=== PATIENT | female | born 1970 | race Caucasian/White ===

== ENCOUNTER → 2020-11-02 | Outpatient (CLI) | payer BC ==
--- NOTE | 2020-11-02 08:42 | XR ---
Limited left knee HISTORY: Pain, no trauma 2 views the left knee, no comparisons There is joint space loss in the medial compartment with marginal spurring and subchondral sclerosis. Alignment is maintained. No fracture or dislocation. Serpiginous soft tissue densities within the so ft tissues are compatible with underlying varicosities. No sizable joint effusion. Spurring also pres ent at the patellofemoral joint. There may be soft tissue swelling. IMPRESSION: Osteoarthritis. Additional findings above.
== END | disposition home or self-care (01) ==
LOC: RADXRMAIN 07:15
PROVIDERS: ATTEND Physician Assistant Medical
DX: M17.12 Unilateral primary osteoarthritis, left knee (principal); M76.892 Other specified enthesopathies of left lower limb, excluding foot

== ENCOUNTER → 2021-05-07 | Outpatient (CLI) | payer BC ==
--- NOTE | 2021-05-10 11:03 | MM ---
Reason for exam: screening (asymptomatic). Last mammogram was performed 12 years and 9 months ago. History: Family history of breast cancer in mother at age 50. Taking hormonal contraceptives beginning at age 44. Physical Findings: A clinical breast exam by your physician is recommended on an annual basis and results should be correlated with mammographic findings. MG Screening Mammo w CAD Bilateral CC and MLO view(s) were taken. Prior study comparison: July 22, 2008, bilateral digital screening mammogram. There are scattered fibroglandular densities. This finding is changed when compared with previous exams. ASSESSMENT: Incomplete: need additional imaging evaluation, BI-RAD 0 RECOMMENDATION: Special view mammogram of both breasts. If lesion persists on supplemental views, image directed ultrasound is recommended. [facility] will attempt to contact patient to return for supplemental views and ultrasound if indicated.
== END | disposition home or self-care (01) ==
LOC: RADMAMWWP 07:38
PROVIDERS: ATTEND Family Medicine
DX: Z12.31 Encounter for screening mammogram for malignant neoplasm of breast (principal); Z80.3 Family history of malignant neoplasm of breast
CPT/HCPCS: 77067

== ENCOUNTER → 2021-05-12 | Outpatient (CLI) | payer BC ==
--- NOTE | 2021-05-13 14:53 | MM ---
Reason for exam: additional evaluation requested from abnormal screening. Last mammogram was performed less than 1 month ago. History: Family history of breast cancer in mother at age 50. Took hormonal contraceptives for 8 years beginning at age 44. Physical Findings: Nurse did not find any significant physical abnormalities on exam. MG 3D Work Up W/Cad ARJUN Bilateral spot compression CC and LM view(s) were taken. Prior study comparison: May 07, 2021, bilateral MG screening mammo w CAD. July 22, 2008, bilateral digital screening mammogram. The breast tissue is heterogeneously dense. This may lower the sensitivity of mammography. Right 1.5cm oval focal asymmetry persists medially. Again, not well seen on lateral but possibly 2 o'clock. Left nodularity becomes less defined. Some area of 1cm and smaller low density nodularity is noted, probable cysts. These results were verbally communicated with the patient and result sheet given to the patient on 05/12/21. ASSESSMENT: Incomplete: need additional imaging evaluation, BI-RAD 0 RECOMMENDATION: Ultrasound of both breasts. (right medial, left lateral)
--- NOTE | 2021-05-13 14:57 | USB ---
Reason for exam: additional evaluation requested from abnormal screening. History: Family history of breast cancer in mother at age 50. Took hormonal contraceptives for 8 years beginning at age 44. US Breast Workup Limited ARJUN Right limited breast ultrasound including focal area of concern, retroareolar and axilla demonstrates a 1.1 x 0.8 x 0.5cm oval, lobulated, mixed cluster at 1 o'clock, likely mammographic correlate, biopsy with clip placement, a 2.7 x 2.3 x 0.8cm oval, solid, circumscribed lipoma at 2 o'clock and a 0.4 x 0.4 x 0.2cm oval, cystic lesion at 3 o'clock. Left limited breast ultrasound including focal area of concern, retroareolar and axilla demonstrates a 0.5 x 0.4 x 0.2cm oval, cystic lesion at 2 o'clock, a 0.6 x 0.5 x 0.2cm oval, cystic lesion at 3 o'clock, a 0.4 x 0.4 x 0.3cm oval, cystic lesion at 4 o'clock, and ductal ectasia at 4 o'clock posterior nipple. Right breast scanned 12-6 o'clock. Left breast scanned 12-6 o'clock. These results were verbally communicated with the patient and result sheet given to the patient on 05/12/21. ASSESSMENT: Suspicious, BI-RAD 4 RECOMMENDATION: Ultrasound core biopsy of the right breast. (1 o'clock) Called Dr. Tesfaye's office with mammographic findings and has scheduled an appointment for the patient for 07/09/21 at 10:[address] Pascual. Biopsy scheduled for 07/09/21 at 1:00. PRELIMINARY REPORT CALLED AND FAXED TO DR. PASCUAL ON 05/13/21.
== END | disposition home or self-care (01) ==
LOC: RADMAMWWP 07:10
PROVIDERS: ATTEND Family Medicine
DX: N60.01 Solitary cyst of right breast (principal); N60.02 Solitary cyst of left breast; N60.42 Mammary duct ectasia of left breast
CPT/HCPCS: 77062; 77066

== ENCOUNTER → 2021-07-09 | Day surgery (SDC) | payer BC ==
[2021-07-09 09:45] VITALS: RESP 16
[2021-07-09 11:12] VITALS: BP 110/71; PULSE 71; TEMP 98
--- NOTE | 2021-07-09 15:32 | USB ---
EXAMINATION TYPE: US biopsy breast VAD RT DATE OF EXAM: 07/09/2021 CLINICAL HISTORY: R92.8, Abnormal mammogram. TECHNIQUE: Ultrasound guided vaccuum assisted core biopsy of right breast. COMPARISON: 05/12/2021 FINDINGS: The ultrasound guided core biopsy procedure was explained to the patient. The risks, benefits, alternatives were discussed. An informed consent was then obtained. Timeout was performed. The patient was placed in supine positioning for imaging and for the procedure. The overlying skin was prepped with betadine and sterilely draped in usual sterile fashion. Lidocaine 1% was used as anesthetic into the skin and deeper breast tissue up to area of concern in the breast. A small skin mukul was made with surgical scalpel. Under ultrasound guidance, a 12-gauge vacuum assisted biopsy device was used to obtain 4 core samples. A biopsy clip was left in lesion. Ribbon clip was placed Good hemostasis was obtained with direct pressure. Discharge instructions were discussed with the patient. The patient will follow up with the referring physician for results. Postprocedure mammogram: The patient was transferred to mammography for physician ordered post procedure mammogram for clip placement verification. The clip is in the expected region of the biopsy. This area also appears to correspond to the mammographic finding 05/12/2021. The patient tolerated the procedure well without any immediate complication. The patient was discharged to home in stable condition. IMPRESSION: 1. Successful ultrasound guided biopsy right breast. Recommendations: 1. Recommendations are pending pathology results. Pathology Results: Benign RIGHT BREAST, ONE O'CLOCK, CORE BIOPSY: Fibrocystic changes with papillary apocrine metaplasia, focal columnar cell change and focally favored microcalcification. Negative for in situ or invasive carcinoma. Recommendation Follow up ultrasound of the right breast in 6 months. KRANTHI
--- NOTE | 2021-07-09 15:33 | MM ---
EXAMINATION TYPE: US biopsy breast VAD RT DATE OF EXAM: 07/09/2021 CLINICAL HISTORY: R92.8, Abnormal mammogram. TECHNIQUE: Ultrasound guided vaccuum assisted core biopsy of right breast. COMPARISON: 05/12/2021 FINDINGS: The ultrasound guided core biopsy procedure was explained to the patient. The risks, benef its, alternatives were discussed. An informed consent was then obtained. Timeout was performed. The patient was placed in supine positioning for imaging and for the procedure. The overlying skin w as prepped with betadine and sterilely draped in usual sterile fashion. Lidocaine 1% was used as ane sthetic into the skin and deeper breast tissue up to area of concern in the breast. A small skin basia k was made with surgical scalpel. Under ultrasound guidance, a 12-gauge vacuum assisted biopsy device was used to obtain 4 core samples . A biopsy clip was left in lesion. Ribbon clip was placed Good hemostasis was obtained with direct pressure. Discharge instructions were discussed with the lynne seymour. The patient will follow up with the referring physician for results. Postprocedure mammogram: The patient was transferred to mammography for physician ordered post proced ure mammogram for clip placement verification. The clip is in the expected region of the biopsy. Thi s area also appears to correspond to the mammographic finding 05/12/2021. The patient tolerated the procedure well without any immediate complication. The patient was dischar ged to home in stable condition. IMPRESSION: 1. Successful ultrasound guided biopsy right breast. Recommendations: 1. Recommendations are pending pathology results.
== END ==
LOC: RADUSWWP 08:19
PROVIDERS: ATTEND Surgery
DX: R92.8 Other abnormal and inconclusive findings on diagnostic imaging of breast (principal); N60.11 Diffuse cystic mastopathy of right breast; N60.81 Other benign mammary dysplasias of right breast
CPT/HCPCS: 88305; 77065; 19083; A4648; J2001

== ENCOUNTER → 2021-07-09 | Outpatient (CLI) | payer BC ==
[2021-07-09 08:54] VITALS: BP 116/79; PULSE 78; RESP 18; TEMP 98.6
--- NOTE | 2021-07-09 09:25 | P.GSHP ---
History of Present Illness H&P Date: 07/09/21 Chief Complaint: Abnormal right breast mammogram and ultrasound Trinh is a 50-year-old white female who underwent a bilateral mammogram on [id number]. She was noted to have right breast 1.5 cm oval focal asymmetry medially and left breast nodularity. Additional workup of ultrasound of both breasts was performed on the same day. In the right breast she was noted to have a 1.1 x 0.8 cm lobulated mix cluster which felt to correlate with mammographic change. Additionally a 2.7 x 2.3 cm probable lipoma was noted at 2:00 and a 0.4 x 0.2 cm cystic lesion at 3:00. In the left breast only cystic changes were identified. The patient did not feel anything in her breast, and still does not. The patient did not have any trauma or infection in the breast. She is not complaining of any nipple discharge or skin changes. She is not complaining of any pain in her breasts. She has never had a breast biopsy or surgery on her breasts. Caffeine: 3 energy drinks/day nicotine: 1/PPD (30 years) chocolate: none BCP: 30 years ( oral and implants) Family History: mother: bilateral mastectomy, bilateral cancer first diagnosis at 63 father: multiple myloma Hormonal history: Menarche: 13 age at 24, breast fed: yes menopause: implant placed for control over 8 years ago no period since BCP: oral BCP 10 years, Mederna uterine implant 10 years; than implant in arm Nexplanon hormones: none Surgical history: left knee repair torn meniscus eye surgery (two cataract, tear ducts, glaucoma, implants that release steriods) Medical History: eye uveitis HTN Social History: nicotine: 1/PPD alcohol: none drugs: Marijuana edibles to sleep at night - Constitutional Constitutional: Denies chills, Denies fever - EENT Eyes: denies blurred vision, denies pain Ears: deny: decreased hearing, tinnitus Ears, nose, mouth and throat: Denies headache, Denies sore throat - Breasts Breasts: bilateral: as per HPI - Cardiovascular Cardiovascular: Denies chest pain, Denies shortness of breath - Respiratory Comment: smokers cough - Gastrointestinal Gastrointestinal: Denies abdominal pain, Denies diarrhea, Denies nausea, Denies vomiting - Genitourinary (Female) Genitourinary: Denies dysuria, Denies hematuria - Menstruation Menstruation: Reports as per HPI - Musculoskeletal Musculoskeletal: Denies myalgias - Integumentary Integumentary: Denies pruritus, Denies rash - Neurological Neurological: Denies numbness, Denies weakness - Psychiatric Psychiatric: Denies anxiety, Denies depression - Endocrine Comment: weight loss rani irene Endocrine: Reports weight change, Denies fatigue - Hematologic/Lymphatic Comment: none - Allergic/Immunologic Allergic/Immunologic: Reports as per HPI Past Medical History History of Any Multi-Drug Resistant Organisms: None Reported Smoking Status: Current every day smoker Medications and Allergies Home Medications Medication Instructions Recorded Confirmed Type Escitalopram Oxalate [Lexapro] 60 mg PO DAILY 07/01/21 07/09/21 History Liraglutide [Saxenda] 0.6 mg SQ DAILY 07/01/21 07/09/21 History hydroCHLOROthiazide 40 mg PO DAILY 07/01/21 07/09/21 History Allergies Allergy/AdvReac Type Severity Reaction Status Date / Time No Known Allergies Allergy Verified 07/09/21 08:49 Surgical - Exam Vital Signs Temp Pulse Resp BP Pulse Ox 98.6 F 78 18 116/79 98 07/09/21 08:49 07/09/21 08:49 07/09/21 08:49 07/09/21 08:49 07/09/21 08:49 BMI 42.3 - General well developed, well nourished, no distress - Eyes normal ocular movement - ENT no hearing loss - Neck trachea midline - Respiratory normal respiratory effort - Cardiovascular Rhythm: regular Heart Sounds: normal: S1, S2 - Abdomen Abdomen: soft - Integumentary normal turgor - Neurologic no disoriented, no combative - Musculoskeletal normal gait, normal posture - Psychiatric oriented to time, oriented to person, oriented to place, speech is normal, memory intact Breast Exam: BRA: 46DD inspection: Grade 3 ptosis Palpation: Right breast: Multi-positional exam fibrocystic changes, increased nodularity upper inner quadrant no discrete dominant masses or nodules of concern otherwise Right axilla: No adenopathy of concern Left breast: Multi-positional exam fibrocystic changes no dominant masses or nodules of concern Left axilla: No adenopathy of concern Results Mammogram and ultrasound reviewed Assessment and Plan Assessment: Impression: Fibrocystic breast changes questionable increased nodularity 1:00 right breast Abnormal right breast mammogram and ultrasound Hypertension Uveitis familiy history of breast cancer (BRCA test negative) Plan: Ultrasound-guided core biopsy right breast Patient to follow up after ultrasound core biopsy CC: Radha Cardona
== END ==
LOC: WWCWWP 08:17
PROVIDERS: ATTEND Surgery
DX: R92.8 Other abnormal and inconclusive findings on diagnostic imaging of breast (principal); N60.11 Diffuse cystic mastopathy of right breast; N60.12 Diffuse cystic mastopathy of left breast; I10 Essential (primary) hypertension; H20.9 Unspecified iridocyclitis; Z80.3 Family history of malignant neoplasm of breast; F17.210 Nicotine dependence, cigarettes, uncomplicated

== ENCOUNTER → 2023-01-03 | Outpatient (CLI) | payer BC ==
--- NOTE | 2023-01-03 08:39 | MM ---
Reason for Exam: Follow-up at short interval from prior study. Last mammogram was performed 1 year(s) and 8 month(s) ago. Patient History: Menarche at age 13. First Full-Term at age 25. Hormonal Contraceptives, starting at age 44 for 8 years. 07/09/2021, Benign Core Biopsy on the right side. Mother had breast cancer, age 50. Risk Values: Priti 5 year model risk: 2.3%. NCI Lifetime model risk: 17.2%. Tissue Density: There are scattered fibroglandular densities. Findings: Analyzed By CAD. No new suspicious masses, calcifications or distortions. Right breast biopsy clip. Overall Assessment: Benign, BI-RAD 2 Management: Screening Mammogram of both breasts in 1 year. Results were given to the patient verbally at the time of exam. Patient should continue monthly self-breast exams. A clinical breast exam by your physician is recommended on an annual basis. This exam should not preclude additional follow-up of suspicious palpable abnormalities. Note on Priti scores and lifetime risk: 1. A Priti score greater than 3% is considered moderate risk. If this is the case, consider specialist referral to assess eligibility for a risk reducing agent. 2. If overall lifetime risk for the development of breast cancer is 20% or higher, the patient may qualify for future screening with alternating mammogram and breast MRI. Electronically signed and approved by: Alan Yap DO
== END | disposition home or self-care (01) ==
LOC: RADMAMWWP 08:08
PROVIDERS: ATTEND Family Medicine
DX: R92.8 Other abnormal and inconclusive findings on diagnostic imaging of breast (principal); Z80.3 Family history of malignant neoplasm of breast
CPT/HCPCS: 77062; 77066

== ENCOUNTER 2023-09-03 06:20 | Emergency (ER) | payer BC ==
[2023-09-03] MEDS: SODIUM CHLORIDE 0.9% 1,000 ML IV ONE (06:38)
[2023-09-03] MEDS: SODIUM CHLORIDE 0.9% 500 ML 500 ML IV ONE (06:39)
[2023-09-03] MEDS: droPERidol 5 MG/2 ML VIAL IVP ONE (06:40)
--- NOTE | 2023-09-03 06:45 | ED ---
Headache HPI - General Chief Complaint: Headache Stated Complaint: Headache Time Seen by Provider: 09/03/23 06:25 Source: patient, EMS, RN notes reviewed Mode of arrival: EMS Limitations: no limitations - History of Present Illness Initial Comments: 52-year-old female presents emergency department chief complaint of headache, nausea vomiting. Patient states that she initially had a headache with associated nausea, vomiting on . She states that she was very fatigued Monday but yesterday she felt somewhat improved until overnight she developed symptoms again. She states it is a frontal headache and bilateral she denies any trauma denies any blood thinners states that her legs just feel heavy but denies any unilateral or associated weakness. She denies chest pain shortness of breath no reports of fever. Patient states that she has not been able to take her medications which include Zoloft, Vaylar, and Suboxone. - Related Data Home Medications Medication Instructions Recorded Confirmed Escitalopram Oxalate [Lexapro] 60 mg PO DAILY 07/01/21 07/09/21 Liraglutide [Saxenda] 0.6 mg SQ DAILY 07/01/21 07/09/21 hydroCHLOROthiazide 40 mg PO DAILY 07/01/21 07/09/21 Previous Rx's Medication Instructions Recorded Ondansetron Odt [Zofran Odt] 4 mg PO Q8HR PRN #10 tab 09/03/23 Allergies Allergy/AdvReac Type Severity Reaction Status Date / Time No Known Allergies Allergy Verified 07/09/21 09:37 Review of Systems ROS Statement: Those systems with pertinent positive or pertinent negative responses have been documented in the HPI. ROS Other: All systems not noted in ROS Statement are negative. Past Medical History Past Medical History: Hypertension History of Any Multi-Drug Resistant Organisms: None Reported Past Surgical History: Section Additional Past Surgical History / Comment(s): multiple eye surgery. Uveitis Past Anesthesia/Blood Transfusion Reactions: No Reported Reaction Past Psychological History: Anxiety Smoking Status: Current every day smoker Past Alcohol Use History: None Reported Past Drug Use History: None Reported General Exam Limitations: no limitations General appearance: alert, in no apparent distress Head exam: Present: atraumatic, normocephalic, normal inspection Eye exam: Present: normal appearance, PERRL, EOMI. Absent: scleral icterus, conjunctival injection, periorbital swelling ENT exam: Present: normal exam, normal oropharynx, mucous membranes moist Neck exam: Present: normal inspection, full ROM. Absent: tenderness, meningismus, lymphadenopathy Respiratory exam: Present: normal lung sounds bilaterally. Absent: respiratory distress, wheezes, rales, rhonchi, stridor Cardiovascular Exam: Present: regular rate, normal rhythm, normal heart sounds. Absent: systolic murmur, diastolic murmur, rubs, gallop, clicks Neurological exam: Present: alert, oriented X3, CN II-XII intact, reflexes normal. Absent: motor sensory deficit Skin exam: Present: warm, dry, intact, normal color. Absent: rash Course Vital Signs 09/03/23 09/03/23 09/03/23 06:22 08:00 08:45 Temperature 98.6 F 97.9 F Pulse Rate 63 64 67 Respiratory 14 16 18 Rate Blood Pressure 180/99 159/89 111/85 O2 Sat by Pulse 98 98 98 Oximetry Medical Decision Making - Medical Decision Making Was pt. sent in by a medical professional or institution (, PA, [employer], urgent care, hospital, or long term...) When possible be specific @ -No Did you speak to anyone other than the patient for history (EMS, parent, family, police, friend...)? What history was obtained from this source @ -No Did you review nursing and triage notes (agree or disagree)? Why? @ -I reviewed and agree with nursing and triage notes Were old charts reviewed (outside hosp., previous admission, EMS record, old EKG, old radiological studies, urgent care reports/EKG's, long term records)? Report findings @ -No old charts were reviewed Differential Diagnosis (chest pain, altered mental status, abdominal pain women, abdominal pain men, vaginal bleeding, weakness, fever, dyspnea, syncope, headache, dizziness, GI bleed, back pain, seizure, CVA, palpatations, mental health, musculoskeletal)? @ -[Differential Headache: Migraine, tension, cluster, carbon monoxide, central venous thrombosis, pension karma temporal arteritis, acute closure glaucoma, intercranial hemorrhage, mastoiditis, sinusitis, head injury, this is not meant to be an all-inclusive list. EKG interpreted by me (3pts min.). @ -None X-rays interpreted by me (1pt min.). @ -[None done CT interpreted by me (1pt min.). @ -CT brain showed no acute intracranial hemorrhage or mass effect U/S interpreted by me (1pt. min.). @ -None done What testing was considered but not performed or refused? (CT, X-rays, U/S, labs)? Why? @ -None What meds were considered but not given or refused? Why? @ -None Did you discuss the management of the patient with other professionals (professionals i.e. DrAllyssa, PA, [employer], lab, RT, psych nurse, vp digital marketing social media and crm, electric solderer, teacher, emergency communications officer, case consultant)? Give summary @ -No Was smoking cessation discussed for >3mins.? @ -No Was critical care preformed (if so, how long)? @ -No Were there social determinants of health that impacted care today? How? (Homelessness, low income, unemployed, alcoholism, drug addiction, transportation, low edu. Level, literacy, decrease access to med. care, senior care, rehab)? @ -No Was there de-escalation of care discussed even if they declined (Discuss DNR or withdrawal of care, Hospice)? DNR status @ -No What co-morbidities impacted this encounter? (DM, HTN, Smoking, COPD, CAD, Cancer, CVA, ARF, Chemo, Hep., AIDS, mental health diagnosis, sleep apnea, morbid obesity)? @ -None Was patient admitted / discharged? Hospital course, mention meds given and route, prescriptions, significant lab abnormalities, going to OR and other pertinent info. @ -Discharged did have laboratory studies unremarkable, CT was unremarkable patient feels improved after migraine cocktail. Patient discharged in stable condition this may be related to viral illness. Undiagnosed new problem with uncertain prognosis? @ -No Drug Therapy requiring intensive monitoring for toxicity (Heparin, Nitro, Insulin, Cardizem)? @ -No Were any procedures done? @ -No Diagnosis/symptom? @ -Headache, viral illness] Acute, or Chronic, or Acute on Chronic? @ -Acute Uncomplicated (without systemic symptoms) or Complicated (systemic symptoms)? @ -Uncomplicated Side effects of treatment? @ -No Exacerbation, Progression, or Severe Exacerbation? @ -No Poses a threat to life or bodily function? How? (Chest pain, [place], [place], pneumonia, PE, COPD, DKA, ARF, appy, cholecystitis, CVA, Diverticulitis, Homicidal, Suicidal, threat to staff... and all critical care pts) @ -No - Lab Data Result diagrams: 09/03/23 06:35 09/03/23 06:35 Lab Results 09/03/23 09/03/23 09/03/23 Range/Units 06:35 06:35 06:35 WBC 11.2 H (3.8-10.6) k/uL RBC 4.74 (3.80-5.40) m/uL Hgb 14.7 (11.4-16.0) gm/dL Hct 43.2 (34.0-46.0) % MCV 91.0 (80.0-100.0) fL MCH 31.1 (25.0-35.0) pg MCHC 34.2 (31.0-37.0) g/dL RDW 13.3 (11.5-15.5) % Plt Count 343 (150-450) k/uL MPV 7.4 Neutrophils % 59 % Lymphocytes % 30 % Monocytes % 6 % Eosinophils % 3 % Basophils % 1 % Neutrophils # 6.6 (1.3-7.7) k/uL Lymphocytes # 3.3 (1.0-4.8) k/uL Monocytes # 0.6 (0-1.0) k/uL Eosinophils # 0.3 (0-0.7) k/uL Basophils # 0.1 (0-0.2) k/uL Sodium 139 (137-145) mmol/L Potassium 3.8 (3.5-5.1) mmol/L Chloride 108 H (98-107) mmol/L Carbon Dioxide 22 (22-30) mmol/L Anion Gap 9 mmol/L BUN 15 (7-17) mg/dL Creatinine 0.66 (0.52-1.04) mg/dL Est GFR (CKD-EPI)AfAm >90 (>60 ml/min/1.73 sqM) Est GFR (CKD-EPI)NonAf >90 (>60 ml/min/1.73 sqM) Glucose 100 H (74-99) mg/dL Calcium 9.4 (8.4-10.2) mg/dL Total Bilirubin 1.0 (0.2-1.3) mg/dL AST 43 H (14-36) U/L ALT 24 (4-34) U/L Alkaline Phosphatase 45 (38-126) U/L Total Protein 7.1 (6.3-8.2) g/dL Albumin 4.3 (3.5-5.0) g/dL Influenza Type A (PCR) Not Detected (Not Detectd) Influenza Type B (PCR) Not Detected (Not Detectd) RSV (PCR) Not Detected (Not Detectd) SARS-CoV-2 (PCR) Not Detected (Not Detectd) Disposition Clinical Impression: Viral illness, Headache Disposition: HOME SELF-CARE Condition: Stable Instructions (If sedation given, give patient instructions): Acute Headache (ED) Additional Instructions: Please return to the Emergency Department if symptoms worsen or any other concerns. Prescriptions: Ondansetron Odt [Zofran Odt] 4 mg PO Q8HR PRN #10 tab PRN Reason: Nausea Is patient prescribed a controlled substance at d/c from ED?: No Referrals: Fartun Miller DO [REFERRING] - 1-2 days Time of Disposition: 08:25
[2023-09-03 07:09] LABS: Basophils # (A) 0.1 k/uL (0-0.2); Basophils % (A) 1 %; Eosinophils # (A) 0.3 k/uL (0-0.7); Eosinophils % (A) 3 %; HCT 43.2 % (34.0-46.0); HGB 14.7 gm/dL (11.4-16.0); Lymphocytes # (A) 3.3 k/uL (1.0-4.8); Lymphocytes % (A) 30 %; MCH 31.1 pg (25.0-35.0); MCHC 34.2 g/dL (31.0-37.0); Mean Platelet Volume 7.4; Monocytes # (A) 0.6 k/uL (0-1.0); Monocytes % (A) 6 %; Neutrophils # (A) 6.6 k/uL (1.3-7.7); Neutrophils % (A) 59 %; Platelet Count 343 k/uL (150-450); RBC 4.74 m/uL (3.80-5.40); RDW 13.3 % (11.5-15.5); WBC 11.2 k/uL (3.8-10.6)
[2023-09-03 07:25] LABS: ALT 24 U/L (4-34); African American GFR (CKD) >90 (>60 ml/min/1.73 sqM); Anion Gap 9 mmol/L; Blood Urea Nitrogen 15 mg/dL (7-17); Calcium 9.4 mg/dL (8.4-10.2); Carbon Dioxide 22 mmol/L (22-30); Chloride 108 mmol/L (98-107); Glucose 100 mg/dL (74-99); Non-African American GFR(CKD) >90 (>60 ml/min/1.73 sqM); Sodium 139 mmol/L (137-145)
[2023-09-03 07:26] LABS: AST 43 U/L (14-36); Albumin 4.3 g/dL (3.5-5.0); Alkaline Phosphatase 45 U/L (38-126); Potassium 3.8 mmol/L (3.5-5.1)
[2023-09-03 07:27] LABS: Total Protein 7.1 g/dL (6.3-8.2)
--- NOTE | 2023-09-03 07:33 | CT ---
EXAMINATION TYPE: CT brain wo con DATE OF EXAM: 09/03/2023 COMPARISON: 01/30/2012 HISTORY: 52-year-old female Severe headache, frontal region, denies HTN TECHNIQUE: Examination was done in axial plane without intravenous contrast. Coronal and sagittal r econstructions performed. CT DLP: 1197.4 mGycm Automated exposure control for dose reduction was used. FINDINGS: There is no evidence of acute intracranial hemorrhage, acute ischemic changes, mass, mass-effect, or extra-axial fluid collection. There is no effacement of cerebral sulci or basal subarachnoid cister ns. There is no hydrocephalus. There is no midline shift. Mosher-white matter distinction is preserv ed. Leftward nasal septal deviation. Paranasal sinuses and mastoid air cells well pneumatized. Orbits and globes are intact. IMPRESSION: No acute intracranial abnormality seen.
[2023-09-03] MEDS: KETOROLAC 15 MG/ML 1 ML VIAL IVP STA (08:06)
[2023-09-03] MEDS: ORPHENADRINE 30 MG/ML 2 ML VIAL IVP STA (08:06)
[2023-09-03 09:09] VITALS: BP 111/85; PULSE 67; RESP 18; TEMP 97.9
== END 2023-09-03 08:46 | disposition home or self-care (01) ==
LOC: EC 06:20
DX: B34.9 Viral infection, unspecified (principal); R51.9 Headache, unspecified; I10 Essential (primary) hypertension; F41.9 Anxiety disorder, unspecified; F17.200 Nicotine dependence, unspecified, uncomplicated; Z79.899 Other long term (current) drug therapy; Z20.822 Contact with and (suspected) exposure to COVID-19
CPT/HCPCS: 36415; 80053; 85025; 87636; 70450; 99284; 96374; 96375 ×2; 96361 ×2; J2360; J1885; J1790